=== PATIENT | female | born 1975 | race American Indian/Alaskan Native ===

== ENCOUNTER 2019-03-01 14:41 | Emergency (ER) | payer OTHER ==
--- NOTE | 2019-03-01 15:41 | Emergency Department Report ---
Blank Doc - Documentation Documentation: 43-year-old female that presents with abdominal pain and nausea. This initial assessment/diagnostic orders/clinical plan/treatment(s) is/are subject to change based on patient's health status, clinical progression and re- assessment by fellow clinical providers in the ED. Further treatment and workup at subsequent clinical providers discretion. Patient/guardians urged not to elope from the ED as their condition may be serious if not clinically assessed and managed. Initial orders include: 1- Patient sent to [facility] for further evaluation and treatment 2- labs 3- UA
[2019-03-01 15:42] VITALS: BP 157/85
[2019-03-01 16:55] LABS: Basophils % (Auto) 0.8 % (0.0-1.8); Eosinophils # (Auto) 0.2 K/mm3 (0.0-0.4); Eosinophils % (Auto) 3.8 % (0.0-4.3); Hematocrit 42.2 % (30.3-42.9); Lymphocytes # (Auto) 1.5 K/mm3 (1.2-5.4); Lymphocytes % (Auto) 31.9 % (13.4-35.0); Mean Corpuscular HGB Conc 33 % (30-34); Mean Corpuscular Volume 87 fl (79-97); Monocytes # (Auto) 0.3 K/mm3 (0.0-0.8); Monocytes % (Auto) 6.4 % (0.0-7.3); Platelet Count 350 K/mm3 (140-440); Red Blood Count 4.85 M/mm3 (3.65-5.03); Red Cell Distribution Width 14.2 % (13.2-15.2)
[2019-03-01 17:18] LABS: Alanine Aminotransferase 13 units/L (7-56); Albumin 3.7 g/dL (3.9-5); BUN/Creatinine Ratio 11; Blood Urea Nitrogen 9 mg/dL (7-17); Hemolysis Index 24
[2019-03-01] MEDS ORDERED: MORPHINE 4 MG/1 ML INJ IV ONE (19:37)
[2019-03-01] MEDS ORDERED: FAMOTIDINE 20 MG/2 ML INJ IV ONE (19:37)
[2019-03-01] MEDS ORDERED: ONDANSETRON 4 MG/2 ML INJ IV ONE (19:37)
[2019-03-01 20:00] LABS: Bilirubin,Urine NEG (Negative); Blood,Urine NEG (Negative); Color,Urine Yellow (Yellow); Mucus,Urine FEW /HPF; RBC,Urine < 1.0 /HPF (0.0-6.0); WBC,Urine < 1.0 /HPF (0.0-6.0)
[2019-03-01] MEDS ORDERED: SODIUM CHLORIDE 0.9% 1000 ML 1,000 ML ONE (20:23)
[2019-03-01] MEDS ORDERED: SODIUM CHLORIDE 0.9% 1000 ML 1,000 ML IV ONE (20:27)
--- NOTE | 2019-03-01 22:16 | Cat Scan Report ---
CT of the abdomen and pelvis with contrast INDICATION: Abdominal pain COMPARISON: None FINDINGS: There is minimal basilar atelectasis. There is moderate fatty infiltration the liver. Gallb ladder has been removed. No biliary tree dilation. The spleen, pancreas, adrenal glands and kidneys a re unremarkable. No fluid or adenopathy in the upper abdomen. CT of the pelvis shows no umbilical hernia containing fat. Uterus has been removed. The appendix is n ot seen no pelvic or inguinal adenopathy. No diverticulosis or diverticulitis. No bowel obstruction i s seen. No significant skeletal lesion. There is a 3.5 cm spiculated soft tissue mass in the midline subcutaneous fat. This may be postoperative scarring but I could not exclude other etiologies such as desmoid tumor or endometriosis. Otherwise no significant pelvic abnormality. IMPRESSION: Midline abdominal wall abnormality as described. Otherwise negative study Automated exposure control was utilized to diminish radiation dose. Signer Name: Luciano Ospina MD Signed: 03/01/2019 10:12 PM Workstation Name: [id number]
--- NOTE | 2019-03-01 23:18 | Emergency Department Report ---
ED Abdominal Pain HPI - General Chief Complaint: Abdominal Pain Stated Complaint: CHEST PAIN/STOMACH SWELLING Time Seen by Provider: 03/01/19 15:40 Source: patient Mode of arrival: Wheelchair Limitations: No Limitations - History of Present Illness Initial Comments: Patient is a 43-year-old female with a history of hypertension who presented to the ED with complaint of acute onset persistent periumbilical abdominal pain for 4 days. Patient also complains of intermittent nausea and vomiting and black tarry stools. Patient admits to taking a lot of and states including Pepto-Bismol, aspirin and ibuprofen frequently for pains. Patient states that she was diagnosed with umbilical hernia was 6 months ago and suspected that her abdominal pain is likely from umbilical hernia exacerbation since she performs heavy lifting at work. Patient denies chest pain, shortness of breath, sore throat, dysuria, diarrhea, dizziness, fever, chills, syncope, low back pain, hematuria, vaginal bleeding or vaginal discharge. MD Complaint: abdominal pain, other (nausea and vomiting) -: Sudden, days(s) (4) Location: periumbilical Radiation: none Migration to: no migration Severity scale (0 -10): 10 Quality: cramping, aching, sharp Consistency: constant Improves With: nothing Worsens With: nothing Associated Symptoms: denies other symptoms, nausea, vomiting. denies: diarrhea, fever, constipation, dysuria, hematemesis, hematochezia, melena, hematuria, anorexia, syncope Treatments Prior to Arrival: NSAIDs - Related Data Previous Rx's Medication Instructions Recorded Last Taken Type Dicyclomine [Bentyl] 20 mg PO Q6H PRN #24 tablet 03/01/19 Unknown Rx Famotidine [Pepcid] 20 mg PO Q12H #60 tablet 03/01/19 Unknown Rx Ondansetron [Zofran Odt] 4 mg PO Q6HR PRN #20 tab.rapdis 03/01/19 Unknown Rx traMADol [Ultram] 50 mg PO Q6HR PRN #12 tablet 03/01/19 Unknown Rx Allergies Allergy/AdvReac Type Severity Reaction Status Date / Time No Known Allergies Allergy Unverified 03/01/19 14:46 ED Review of Systems ROS: Stated complaint: CHEST PAIN/STOMACH SWELLING Other details as noted in HPI Constitutional: denies: chills, fever Eyes: denies: eye pain, eye discharge, vision change ENT: denies: ear pain, throat pain Respiratory: denies: cough, shortness of breath, wheezing Cardiovascular: denies: chest pain, palpitations Endocrine: no symptoms reported. denies: excessive sweating, flushing Gastrointestinal: abdominal pain, nausea, vomiting. denies: diarrhea, constipation, hematemesis, hematochezia Genitourinary: denies: urgency, dysuria, discharge Musculoskeletal: denies: back pain, joint swelling, arthralgia Skin: denies: rash, lesions Neurological: denies: headache, weakness, paresthesias Psychiatric: denies: anxiety, depression Hematological/Lymphatic: denies: easy bleeding, easy bruising ED Past Medical Hx - Past Medical History Previous Medical History?: Yes Hx Hypertension: Yes Additional medical history: Hernia. Hypothyroidism - Surgical History Past Surgical History?: Yes Hx Cholecystectomy: Yes Additional Surgical History: Hysterectomy. C section - Social History Smoking Status: Never Smoker Substance Use Type: None - Medications Home Medications: Home Medications Medication Instructions Recorded Confirmed Last Taken Type Dicyclomine [Bentyl] 20 mg PO Q6H PRN #24 tablet 03/01/19 Unknown Rx Famotidine [Pepcid] 20 mg PO Q12H #60 tablet 03/01/19 Unknown Rx Ondansetron [Zofran Odt] 4 mg PO Q6HR PRN #20 tab.rapdis 03/01/19 Unknown Rx traMADol [Ultram] 50 mg PO Q6HR PRN #12 tablet 03/01/19 Unknown Rx ED Physical Exam - General Limitations: No Limitations General appearance: alert, in no apparent distress - Head Head exam: Present: atraumatic, normocephalic, normal inspection - Eye Eye exam: Present: normal appearance, PERRL, EOMI Pupils: Present: normal accommodation - ENT ENT exam: Present: normal exam, normal orophraynx, mucous membranes moist, TM's normal bilaterally, normal external ear exam - Neck Neck exam: Present: normal inspection, full ROM - Respiratory Respiratory exam: Present: normal lung sounds bilaterally. Absent: respiratory distress, wheezes, rales, rhonchi, chest wall tenderness, accessory muscle use, decreased breath sounds, prolonged expiratory - Cardiovascular Cardiovascular Exam: Present: regular rate, normal rhythm, normal heart sounds. Absent: systolic murmur, diastolic murmur, rubs, gallop - GI/Abdominal GI/Abdominal exam: Present: soft, tenderness (Palpable periumbilical tenderness; Palpable umbilical hernia present; no guarding or rebound), normal bowel sounds, hernia (umbilical hernia). Absent: guarding, rebound, hyperactive bowel sounds, hypoactive bowel sounds, organomegaly, mass, bruit, pulsatile mass - Rectal Rectal exam: Present: normal inspection, normal rectal tone, heme (-) stool, hemorrhoids (external hemorrhoids), other (female pipe threader RN Ms Gomes present during the rectal exam) - Extremities Exam Extremities exam: Present: normal inspection, full ROM, normal capillary refill - Back Exam Back exam: Present: normal inspection, full ROM. Absent: tenderness, muscle spasm, paraspinal tenderness, vertebral tenderness - Neurological Exam Neurological exam: Present: alert, oriented X3, CN II-XII intact, normal gait, reflexes normal - Psychiatric Psychiatric exam: Present: normal affect, normal mood - Skin Skin exam: Present: warm, dry, intact, normal color. Absent: rash ED Course Vital Signs 03/01/19 03/01/19 03/01/19 15:41 20:28 20:58 Temperature 98.1 F Pulse Rate 87 Respiratory 16 18 20 Rate Blood Pressure 157/85 O2 Sat by Pulse 98 Oximetry 03/02/19 00:15 Temperature Pulse Rate 88 Respiratory 16 Rate Blood Pressure O2 Sat by Pulse 100 Oximetry ED Medical Decision Making - Lab Data Result diagrams: 03/01/19 16:39 03/01/19 16:39 - Radiology Data Radiology results: report reviewed, [place] [address] Cat Scan Report Signed Patient: MICHAEL WINCHESTER MR#: [id number] : 1975 Acct:[id number] Age/Sex: 43 / F ADM Date: 03/01/19 Loc: ED Attending Dr: Ordering Physician: LALITA CHUA Date of Service: 03/01/19 Procedure(s): CT abdomen pelvis w con Accession Number(s): [id number] cc: LALITA CHUA CT of the abdomen and pelvis with contrast INDICATION: Abdominal pain COMPARISON: None FINDINGS: There is minimal basilar atelectasis. There is moderate fatty infiltration the liver. Gallbladder has been removed. No biliary tree dilation. The spleen, pancreas, adrenal glands and kidneys are unremarkable. No fluid or adenopathy in the upper abdomen. CT of the pelvis shows no umbilical hernia containing fat. Uterus has been removed. The appendix is not seen no pelvic or inguinal adenopathy. No diverticulosis or diverticulitis. No bowel obstruction is seen. No significant skeletal lesion. There is a 3.5 cm spiculated soft tissue mass in the midline subcutaneous fat. This may be postoperative scarring but I could not exclude other etiologies such as desmoid tumor or endometriosis. Otherwise no significant pelvic abnormality. IMPRESSION: Midline abdominal wall abnormality as described. Otherwise negative study Automated exposure control was utilized to diminish radiation dose. Signer Name: Luciano Ospina MD Signed: 03/01/2019 10:12 PM Workstation Name: [id number] Transcribed By: CHUNG Dictated By: Luciano Ospina MD Electronically Authenticated By: Luciano Ospina MD Signed Date/Time: 03/01/192211 DD/DT: Medical Decision Making This is a 43-year-old female who presented to the ED with periumbilical abdominal pain for 4 days with nausea and vomiting. In the ED, patient is alert and oriented 3 and is not in distress but appears to be in pain. All lab tests results were reviewed and all nonactionable. Abdomen pelvis CT scan with contrast shows a 3.5 cm spiculated soft tissue mass in the midline subcutaneous fat. This may be postoperative scarring but I could not exclude other etiologies such as desmoid tumor or endometriosis. Otherwise no significant pelvic abnormality. Patient was treated for pain in the ED and on reevaluation, patient's pain is well-controlled with medications. Patient was discharged home on pen medications and referred to the [facility] [place] internal medicine veterinary technician for follow-up. Patient was also given a referral to the general surgeon station cashier Dr. Murphy for outpatient follow-up. Patient is advised to return to the ED immediately if symptoms get worse. - Differential Diagnosis Umbilical hernia; SBO; Appendicitis; UTI; Pancreatitis; Colitis Critical care attestation.: If time is entered above; I have spent that time in minutes in the direct care of this critically ill patient, excluding procedure time. ED Disposition Clinical Impression: Nausea and vomiting in adult, Abdominal wall mass Abdominal pain Qualifiers: Abdominal location: periumbilical Qualified Code(s): R10.33 - Periumbilical pain GERD (gastroesophageal reflux disease) Qualifiers: Esophagitis presence: without esophagitis Qualified Code(s): K21.9 - Gastro-esophageal reflux disease without esophagitis Disposition: TO HOME OR SELFCARE Is pt being admited?: No Does the pt Need Aspirin: No Condition: Stable Instructions: Gastroesophageal Reflux Disease (ED), Acute Nausea and Vomiting (ED), Abdominal Pain (ED) Additional Instructions: Your lab test results were all normal. Abdomen pelvis CT scan with contrast showed a 3.5 cm spiculated soft tissue mass in the midline subcutaneous fat of your abdomen. This may be postoperative scarring from previous surgeries but we could not exclude other etiologies such as desmoid tumor or endometriosis. Therefore take medications with food, drink plenty of fluids and follow-up with the GI physician Dr. Santos as well as the General surgeon station cashier Dr. Murphy for further evaluation of the abdominal mass. Return to the ED immediately if symptoms get worse. Prescriptions: Dicyclomine [Bentyl] 20 mg PO Q6H PRN #24 tablet PRN Reason: Pain , Severe (7-10) Famotidine [Pepcid] 20 mg PO Q12H #60 tablet traMADol [Ultram] 50 mg PO Q6HR PRN #12 tablet PRN Reason: Pain Ondansetron [Zofran Odt] 4 mg PO Q6HR PRN #20 tab.rapdis PRN Reason: Nausea Referrals: ALBINA HAMMER [Other] - 3-5 Days AIRAM MURPHY MD [Staff Physician] - 3-5 Days BETI SANTOS MD [Staff Physician] - 3-5 Days Forms: Accompanied Note, Work/School Release Form(ED) Time of Disposition: 23:25 Print Language: BRITISH
== END 2019-03-02 00:15 | disposition home or self-care (01) ==
LOC: ED 14:41
DX: K21.9 Gastro-esophageal reflux disease without esophagitis (principal); I10 Essential (primary) hypertension; R11.2 Nausea with vomiting, unspecified; E03.9 Hypothyroidism, unspecified; Z90.49 Acquired absence of other specified parts of digestive tract; Z90.710 Acquired absence of both cervix and uterus; Z79.899 Other long term (current) drug therapy
CPT/HCPCS: 36415; 74177; 80053; 81001; 83690; 84703; 85025; 96361; 96374; 96375; 99284; J2270; J2405; J7030; Q9967